=== PATIENT | male | born 1950 | race Caucasian/White ===

== ENCOUNTER → 2018-02-18 | Outpatient (CLI) | payer MEDICARE, OTHER ==
[~2018-02-18] MED LIST: ALB6.7R INH; ALBU8.5H IH; ALBU8.5H12 IH; ASPI-1471 PO; AZIT-1 PO; CHOL10005 PO; DOCU-416 PO; HYDR-317 PO; IBUP-56 PO; MAGNESIUM PO; NAPR-1043 PO; OMEP10CA38 PO; PER PO; PHEN200T32 PO; TAMS0.4C25 PO
[2018-02-18 13:58] LABS: LDL CHOLESTEROL 34 mg/dl
== END ==
LOC: LAB 13:08
DX: Z12.5 Encounter for screening for malignant neoplasm of prostate (principal); E78.2 Mixed hyperlipidemia; R53.83 Other fatigue; I25.10 Atherosclerotic heart disease of native coronary artery without angina pectoris
CPT/HCPCS: 36415; 84439; 84443; 85027; G0103; 82040; 82247; 82310; 82374; 82435; 82465; 82565; 82947; 83718; 84075; 84132; 84153; 84155; 84295; 84450; 84460; 84478; 84520

== ENCOUNTER → 2018-05-16 | Outpatient (CLI) | payer MEDICARE, OTHER | LOC: LAB 07:37 | PROVIDERS: ATTEND Urology | DX: E29.1 Testicular hypofunction (principal); N52.01 Erectile dysfunction due to arterial insufficiency | CPT/HCPCS: 36415; 84403 ==

== ENCOUNTER → 2018-05-21 | Outpatient (CLI) | payer MEDICARE, OTHER ==
[2018-05-21 10:29] LABS: LDL CHOLESTEROL 79 mg/dl
== END ==
LOC: LAB 08:36
DX: Z12.5 Encounter for screening for malignant neoplasm of prostate (principal); I25.10 Atherosclerotic heart disease of native coronary artery without angina pectoris; R53.83 Other fatigue; E78.2 Mixed hyperlipidemia
CPT/HCPCS: 36415; 82040; 82247; 82310; 82374; 82435; 82465; 82565; 82947; 83718; 84075; 84132; 84153; 84155; 84295; 84439; 84443; 84450; 84460; 84478; 84520; 85027

== ENCOUNTER → 2018-07-30 | Outpatient (CLI) | payer MEDICARE, OTHER ==
--- NOTE | 2018-07-30 13:47 | EKG ---
FACILITY: [facility] [place] PATIENT NAME: TIKI CARDENAS : [id number] MR: [id number]: [id number] EXAM DATE: ORDERING PHYSICIAN: SHAYNA MCGRAW TECHNOLOGIST: ROGERIO Webster Reason : PREOP-KNEE Blood Pressure : / mmHG Vent. Rate : 054 BPM Atrial Rate : 054 BPM P-R Int : 198 ms QRS Dur : 092 ms QT Int : 472 ms P-R-T Axes : 065 -39 027 degrees QTc Int : 447 ms Sinus bradycardia Left axis deviation No ST-T abnormalities No previous ECGs available Confirmed by LINDA GODDARD ([id number]) on 07/30/2018 2:19:57 PM Referred By: MARILUZ Confirmed By:ILNDA GODDARD
== END ==
LOC: RESP 13:29
PROVIDERS: ATTEND Anesthesiology
DX: Z01.810 Encounter for preprocedural cardiovascular examination (principal); R00.1 Bradycardia, unspecified; M17.12 Unilateral primary osteoarthritis, left knee; S83.242A Other tear of medial meniscus, current injury, left knee, initial encounter
CPT/HCPCS: 93005